=== PATIENT | male | born 1995 | race American Indian/Alaskan Native ===

== ENCOUNTER 2021-06-09 15:07 | Emergency (ER) | payer OTHER ==
[2021-06-09 15:24] VITALS: BP 149/88
--- NOTE | 2021-06-09 17:26 | Emergency Department Report ---
ED General Adult HPI - General Chief complaint: Skin/Abscess/Foreign Body Stated complaint: COVID SYMPTOMS Time Seen by Provider: 06/09/21 17:20 Source: patient Mode of arrival: Ambulatory Limitations: No Limitations - History of Present Illness Initial comments: Patient is a 26-year-old F [place] male with no significant past medical history who is presenting with Covid-like symptoms. Patient's had congestion and a mild cough headache fevers chills and body aches. symptoms been present for the past 2 to 3 days. Patient also has noticed some redness to the tip of his nose and inside of his nose with some blistering. This area is tender to palpation. Denies nausea vomiting diarrhea at this time. - Related Data Previous Rx's Medication Instructions Recorded Last Taken Type Acyclovir [Acyclovir Ointment] 1 applicatio TP BID #15 g 06/09/21 Unknown Rx Albuterol Mdi (or & Nicu Only) 2 puff IH QID PRN #1 inhalation 06/09/21 Unknown Rx [ProAir HFA Inhaler] Dexamethasone [Decadron] 6 mg PO DAILY #5 tablet 06/09/21 Unknown Rx HYDROcodone/APAP 5-325 [[place] 1 each PO Q6HR PRN #14 tablet 06/09/21 Unknown Rx 5/325] Sulfamethoxazole/Trimethoprim 1 each PO BID #14 tablet 06/09/21 Unknown Rx [Bactrim DS TAB] Allergies Allergy/AdvReac Type Severity Reaction Status Date / Time shellfish derived Allergy Severe Shortness Verified 06/09/21 15:23 of Breath ED Review of Systems ROS: Stated complaint: COVID SYMPTOMS Other details as noted in HPI Comment: All other systems reviewed and negative ED Past Medical Hx - Medications Home Medications: Home Medications Medication Instructions Recorded Confirmed Last Taken Type Acyclovir [Acyclovir Ointment] 1 applicatio TP BID #15 g 06/09/21 Unknown Rx Albuterol Mdi (or & Nicu Only) 2 puff IH QID PRN #1 inhalation 06/09/21 Unknown Rx [ProAir HFA Inhaler] Dexamethasone [Decadron] 6 mg PO DAILY #5 tablet 06/09/21 Unknown Rx HYDROcodone/APAP 5-325 [[place] 1 each PO Q6HR PRN #14 tablet 06/09/21 Unknown Rx 5/325] Sulfamethoxazole/Trimethoprim 1 each PO BID #14 tablet 06/09/21 Unknown Rx [Bactrim DS TAB] ED Physical Exam - General Limitations: No Limitations General appearance: alert, in no apparent distress - Head Head exam: Present: atraumatic, normocephalic - Eye Eye exam: Present: normal appearance, PERRL, EOMI - ENT ENT exam: Present: mucous membranes moist - Neck Neck exam: Present: normal inspection - Respiratory Respiratory exam: Present: normal lung sounds bilaterally. Absent: respiratory distress, wheezes, rales, rhonchi - Cardiovascular Cardiovascular Exam: Present: regular rate, normal rhythm. Absent: systolic murmur, diastolic murmur, rubs, gallop - GI/Abdominal GI/Abdominal exam: Present: soft, normal bowel sounds - Rectal Rectal exam: Present: deferred - Extremities Exam Extremities exam: Present: normal inspection - Back Exam Back exam: Present: normal inspection - Neurological Exam Neurological exam: Present: alert, oriented X3 - Psychiatric Psychiatric exam: Present: normal affect, normal mood - Skin Skin exam: Present: warm, dry, intact, normal color, other (The tip of the nose the patient has some erythema with induration. Also some small vesicular type lesions as well.). Absent: rash ED Course Vital Signs 06/09/21 15:21 Temperature 98.6 F Pulse Rate 75 Respiratory 16 Rate Blood Pressure 149/88 O2 Sat by Pulse 100 Oximetry ED Medical Decision Making - Medical Decision Making Patient with Covid-like symptoms. Also appears he may have a herpetic kinga with a secondary cellulitic changes on the nose. Patient given medication for symptomatic relief regarding Covid symptoms and will be started on acyclovir ointment and Bactrim. Critical care attestation.: If time is entered above; I have spent that time in minutes in the direct care of this critically ill patient, excluding procedure time. ED Disposition Clinical Impression: Suspected COVID-19 virus infection, Cellulitis and abscess of face, Herpetic kinga Disposition: 01 HOME / SELF CARE / HOMELESS Is pt being admited?: No Does the pt Need Aspirin: No Condition: Stable Instructions: Herpetic Kinga, Cellulitis, Adult, COVID-19 Frequently Asked Questions, Infection Prevention in the Home Additional Instructions: Given the prevalence of the omicron variant of COVID-19 this is the most likely cause of your symptoms. Unfortunately at this time we do not have a rapid test to confirm this diagnosis. Please follow-up with a local pharmacy/urgent care/testing site for official testing. Medications for symptom relief have been given. Time of Disposition: 17:26
== END 2021-06-09 18:00 | disposition home or self-care (01) ==
LOC: ED 15:07
DX: L03.211 Cellulitis of face (principal); L02.01 Cutaneous abscess of face; B00.89 Other herpesviral infection; Z20.822 Contact with and (suspected) exposure to COVID-19
CPT/HCPCS: 99281